=== PATIENT | male | born 1935 | race African-American/Black ===

== ENCOUNTER 2017-11-16 18:46 | Inpatient (IN) ==
[2017-11-16] MEDS ORDERED: ALBUTEROL NEB SOLN 5 MG/ML 20 ML/BOTTLE CONT NEB STA (20:34)
[2017-11-16] MEDS ORDERED: methylPREDNISolone SOD SUC 125 MG/2 ML VIAL IV STA (20:35)
[2017-11-16] MEDS ORDERED: ALBUTEROL/IPRATROPIUM 3 ML NEB RESP TX PRN (21:06)
[2017-11-16] MEDS ORDERED: DEXTROSE 50% 25 GM/50 ML VIAL IV PRN (21:06)
[2017-11-16] MEDS ORDERED: GLUCAGON 1 MG VIAL IM PRN (21:06)
[2017-11-16] MEDS ORDERED: ONDANSETRON 4 MG/2 ML VIAL IV PRN (21:06)
[2017-11-16] MEDS ORDERED: SODIUM CHLORIDE 0.9% 1,000 ML IV SCH (21:06)
[2017-11-16] MEDS ORDERED: ALBUTEROL 2.5 MG/3 ML NEB RESP TX ONE (21:29)
[2017-11-16 21:56] LABS: ABG Base Excess 3.8 MMOL/L (-2.5-2.5); ABG HCO3 27.7 MMOL/L (20-26); ABG Oxygen Saturation 93.4 % (95-100); ABG PO2 84.1 MM HG (80-95); ABG TCO2 34.6 MMOL/L (23-27); Allen Test Positive
[2017-11-16] MEDS ORDERED: methylPREDNISolone SOD SUC 125 MG/2 ML VIAL ONE (22:08)
[2017-11-16] MEDS ORDERED: PANTOPRAZOLE 40 MG VIAL IV ONE (22:08)
[2017-11-16 22:20] LABS: ABG PH 7.156 (7.35-7.45)
[2017-11-16] MEDS: PANTOPRAZOLE 40 MG VIAL IV SCH (22:35)
[2017-11-16 23:36] LABS: Apearance,Urine Slightly Hazy (Clear); Bacteria,Urine Occasional /HPF (Few); Bilirubin,Urine Negative (Negative); Blood, Urine Small mg/dL (Negative); Glucose,Urine (UA) Negative (Negative); Hyaline Casts,Urine 6 /LPF (0-3); Ketones,Urine Negative (Negative); Mucus,Urine Occasional /LPF (Occasional); Nitrite,Urine Negative (Negative); Protein,Urine Negative; RBC,Urine 3 /HPF (0-4); Squamous Epithelial Cell,Urine Occasional /HPF (0-10); Urine Color Yellow (Yellow); Urine Urobilinogen < 2.0 EU/DL (0.2-1.0); WBC,Urine 2 /HPF (0-6)
[2017-11-16 23:41] LABS: Barbiturates Screen,Urine Negative (Negative); Benzodiazepines Screen,Urine Negative (Negative); Cannabinoid Screen,Urine Negative (Negative); Opiate Screen,Urine Negative (Negative); Phencyclidine Screen,Urine Negative (Negative)
[2017-11-16] MEDS: methylPREDNISolone SOD SUC 40 MG/1 ML VIAL IV SCH ×2 (23:57→23:58)
[2017-11-17] MEDS: INSULIN REGULAR 100 UNIT/ML SUBCUT SCH ×4 (00:02→18:59)
[2017-11-17] MEDS: ALBUTEROL/IPRATROPIUM 3 ML NEB RESP TX SCH ×8 (00:05→22:53)
[2017-11-17 01:39] LABS: ABG Base Excess 4.3 MMOL/L (-2.5-2.5); ABG HCO3 27.9 MMOL/L (20-26); ABG Oxygen Saturation 79.7 % (95-100); Allen Test Positive; Pt O2 Delivery Device BIPAP
[2017-11-17 01:43] LABS: ABG PCO2 90.8 MM HG (35-48)
[2017-11-17] MEDS ORDERED: ALBUTEROL NEB SOLN 5 MG/ML 20 ML/BOTTLE CONT NEB STA (01:56)
[2017-11-17] MEDS ORDERED: ALBUTEROL 2.5 MG/3 ML NEB RESP TX ONE (02:08)
[2017-11-17 03:40] LABS: ABG HCO3 27.6 MMOL/L (20-26); ABG Oxygen Saturation 84.7 % (95-100); ABG PO2 57.9 MM HG (80-95); ABG TCO2 33.1 MMOL/L (23-27); Allen Test Positive; Pt O2 Delivery Device BIPAP
[2017-11-17 03:42] LABS: ABG PCO2 93.9 MM HG (35-48); ABG PH 7.197 (7.35-7.45)
[2017-11-17 05:36] LABS: ABG Base Excess 3.3 MMOL/L (-2.5-2.5); ABG HCO3 27.2 MMOL/L (20-26); ABG Oxygen Saturation 91.8 % (95-100); ABG PH 7.217 (7.35-7.45); ABG PO2 69.6 MM HG (80-95); ABG TCO2 31.4 MMOL/L (23-27)
[2017-11-17 05:37] LABS: Alanine Aminotransferase 19 U/L (16-61); Albumin 3.2 G/DL (3.4-5.0); Alkaline Phosphatase 67 U/L (45-117); Aspartate Amino Transferase 50 U/L (0-37); Bilirubin,Total < 0.39 MG/DL (0.2-1.0); Blood Urea Nitrogen 61 MG/DL (7-18); Calcium 7.8 MG/DL (8.5-10.1); Glucose 179 MG/DL (74-106); Magnesium 2.2 MG/DL (1.8-2.4); Osmolality,Calculated 297.5 MOS/KG (273-304); Potassium 5.3 MMOL/L (3.5-5.1); Sodium 139 MMOL/L (136-145)
[2017-11-17 05:39] LABS: ABG PCO2 85.6 MM HG (35-48)
[2017-11-17 05:41] LABS: Basophils % 0.2 % (0.0-0.8); Hematocrit 44.3 VOL% (42.0-52.0); Hemoglobin 13.6 GM/DL (14.0-18.0); Immature Granulocytes % 0.5 %; Immature Granulocytes Absolute 0.03 #; Lymphocytes # 1.1 10*3/uL (1.4-4.0); Lymphocytes % 17.4 % (21.2-54.2); Mean Corpuscular HGB Conc 30.7 GM/DL (32-36); Mean Corpuscular Hemoglobin 30 PG (27-34); Monocytes # 0.2 10*3/uL (0.11-0.8); Monocytes % 2.7 % (1.7-12.7); NRBC # 0.03 10*3/uL; Neutrophils # 4.8 10*3/uL (1.4-7.4); Neutrophils % 79.2 % (38.7-73.9); Platelet Count 137 T/CUMM (130-400); Red Blood Count 4.52 MC/CUMM (3.8-5.5); Red Cell Distribution Width 15.7 % (9.3-17.3)
[2017-11-17] MEDS ORDERED: methylPREDNISolone SOD SUC 40 MG/1 ML VIAL ONE (06:11)
[2017-11-17] MEDS: methylPREDNISolone SOD SUC 40 MG/1 ML VIAL IV SCH ×3 (06:14→21:10)
[2017-11-17] MEDS ORDERED: INSULIN REGULAR 100 UNIT/ML ONE (06:26)
[2017-11-17] MEDS ORDERED: INFLUENZA VIRUS VACCINE 0.5 ML SYRINGE IM ONE (07:04)
[2017-11-17] MEDS: SODIUM CHLORIDE 0.9% 1,000 ML IV SCH ×2 (18:58→22:40)
[2017-11-17] MEDS: PANTOPRAZOLE 40 MG VIAL IV SCH (21:10)
[2017-11-17] MEDS: ENOXAPARIN 30 MG/0.3 ML SYRINGE SUBCUT SCH (21:11)
[2017-11-18] MEDS: INSULIN REGULAR 100 UNIT/ML SUBCUT SCH ×5 (01:02→22:04)
[2017-11-18] MEDS: ALBUTEROL/IPRATROPIUM 3 ML NEB RESP TX SCH ×6 (02:23→23:43)
[2017-11-18 04:08] LABS: ABG Base Excess 6.8 MMOL/L (-2.5-2.5); ABG HCO3 33.4 MMOL/L (20-26); ABG Oxygen Saturation 87.9 % (95-100); ABG PCO2 56.5 MM HG (35-48); ABG PH 7.389 (7.35-7.45); ABG PO2 52.6 MM HG (80-95); ABG TCO2 35.1 MMOL/L (23-27)
[2017-11-18 04:43] LABS: Hematocrit 38.1 VOL% (42.0-52.0); Hemoglobin 12.1 GM/DL (14.0-18.0); Immature Granulocytes % 0.5 %; Immature Granulocytes Absolute 0.05 #; Lymphocytes # 1.3 10*3/uL (1.4-4.0); Lymphocytes % 13.2 % (21.2-54.2); Mean Corpuscular HGB Conc 31.8 GM/DL (32-36); Mean Corpuscular Hemoglobin 30 PG (27-34); Mean Corpuscular Volume 93.4 FL (87-102); Mean Platelet Volume 11.2 FL (9.6-12.0); Monocytes # 0.6 10*3/uL (0.11-0.8); Monocytes % 6.4 % (1.7-12.7); NRBC # 0.02 10*3/uL; Neutrophils # 7.9 10*3/uL (1.4-7.4); Neutrophils % 79.9 % (38.7-73.9); Platelet Count 137 T/CUMM (130-400); Red Blood Count 4.08 MC/CUMM (3.8-5.5); Red Cell Distribution Width 15.6 % (9.3-17.3); White Blood Count 9.9 T/CUMM (4-12)
[2017-11-18 05:16] LABS: Calcium 7.4 MG/DL (8.5-10.1)
[2017-11-18 05:17] LABS: Magnesium 2.5 MG/DL (1.8-2.4); Osmolality,Calculated 299.5 MOS/KG (273-304); Potassium 4.8 MMOL/L (3.5-5.1)
[2017-11-18] MEDS: SODIUM CHLORIDE 0.9% 1,000 ML IV SCH ×3 (05:26→17:48)
[2017-11-18] MEDS: methylPREDNISolone SOD SUC 40 MG/1 ML VIAL IV SCH ×3 (05:38→21:18)
[2017-11-18] MEDS ORDERED: LEVOFLOXACIN INJ 500 MG in PREMIX 1 EACH IV ONE (08:00)
[2017-11-18] MEDS: PANTOPRAZOLE 20 MG TABLET PO SCH (12:08)
[2017-11-18] MEDS: ENOXAPARIN 30 MG/0.3 ML SYRINGE SUBCUT SCH (21:18)
[2017-11-19] MEDS: SODIUM CHLORIDE 0.9% 1,000 ML IV SCH ×3 (02:09→16:25)
[2017-11-19] MEDS: methylPREDNISolone SOD SUC 40 MG/1 ML VIAL IV SCH ×3 (04:17→16:24)
[2017-11-19] MEDS: ALBUTEROL/IPRATROPIUM 3 ML NEB RESP TX SCH ×5 (04:24→20:15)
[2017-11-19] MEDS: hydrALAZINE 20 MG/1 ML VIAL IV PRN ×2 (05:18→21:14)
[2017-11-19] MEDS: INSULIN REGULAR 100 UNIT/ML SUBCUT SCH ×4 (09:04→21:13)
[2017-11-19] MEDS: PANTOPRAZOLE 20 MG TABLET PO SCH (09:05)
[2017-11-19] MEDS: LEVOFLOXACIN INJ 250 MG in PREMIX 1 EACH IV SCH (09:05)
[2017-11-19] MEDS: BRIMONIDINE 0.2% OPH SOLN 5 ML BOTTLE BOTH EYES SCH ×2 (16:23→21:12)
[2017-11-19] MEDS: ENOXAPARIN 30 MG/0.3 ML SYRINGE SUBCUT SCH (21:13)
[2017-11-20] MEDS: methylPREDNISolone SOD SUC 40 MG/1 ML VIAL IV SCH ×3 (00:02→20:47)
[2017-11-20] MEDS: ALBUTEROL/IPRATROPIUM 3 ML NEB RESP TX SCH ×6 (01:04→20:20)
[2017-11-20 06:28] LABS: Immature Granulocytes % 0.7 %; Immature Granulocytes Absolute 0.05 #; Lymphocytes # 0.7 10*3/uL (1.4-4.0); Lymphocytes % 9.4 % (21.2-54.2); Mean Corpuscular Hemoglobin 29 PG (27-34); Mean Corpuscular Volume 94.8 FL (87-102); Mean Platelet Volume 11.3 FL (9.6-12.0); Monocytes # 0.4 10*3/uL (0.11-0.8); Monocytes % 5.9 % (1.7-12.7); Neutrophils # 6.1 10*3/uL (1.4-7.4); Platelet Count 142 T/CUMM (130-400); Red Blood Count 4.43 MC/CUMM (3.8-5.5); White Blood Count 7.2 T/CUMM (4-12)
[2017-11-20 07:02] LABS: Calcium 8.4 MG/DL (8.5-10.1); Magnesium 2.4 MG/DL (1.8-2.4); Osmolality,Calculated 293.3 MOS/KG (273-304)
[2017-11-20] MEDS: PANTOPRAZOLE 20 MG TABLET PO SCH (09:10)
[2017-11-20] MEDS: amLODIPine 5 MG TABLET PO SCH (09:10)
[2017-11-20] MEDS: PRAMIPEXOLE 0.25 MG TABLET PO SCH ×3 (09:10→20:48)
[2017-11-20] MEDS: ALFUZOSIN 10 MG TABLET PO SCH (09:10)
[2017-11-20] MEDS: LEVOFLOXACIN INJ 250 MG in PREMIX 1 EACH IV SCH (09:11)
[2017-11-20] MEDS: BRIMONIDINE 0.2% OPH SOLN 5 ML BOTTLE BOTH EYES SCH ×3 (09:11→20:46)
[2017-11-20] MEDS: INSULIN REGULAR 100 UNIT/ML SUBCUT SCH ×5 (09:11→20:48)
[2017-11-20] MEDS: SODIUM CHLORIDE 0.9% 1,000 ML IV SCH (16:12)
[2017-11-20] MEDS: ENOXAPARIN 30 MG/0.3 ML SYRINGE SUBCUT SCH (20:46)
[2017-11-20] MEDS: TRAVOPROST 0.004% OPH SOLN 2.5 ML BOTTLE BOTH EYES SCH (20:49)
[2017-11-21] MEDS: ALBUTEROL/IPRATROPIUM 3 ML NEB RESP TX SCH ×7 (00:08→23:12)
[2017-11-21] MEDS: hydrALAZINE 20 MG/1 ML VIAL IV PRN (05:08)
[2017-11-21] MEDS: PRAMIPEXOLE 0.25 MG TABLET PO SCH ×3 (10:15→20:57)
[2017-11-21] MEDS: BRIMONIDINE 0.2% OPH SOLN 5 ML BOTTLE BOTH EYES SCH ×3 (10:16→20:58)
[2017-11-21] MEDS: PANTOPRAZOLE 20 MG TABLET PO SCH (10:16)
[2017-11-21] MEDS: CLOPIDOGREL 75 MG TABLET PO SCH (10:16)
[2017-11-21] MEDS: ALFUZOSIN 10 MG TABLET PO SCH (10:16)
[2017-11-21] MEDS: LEVOFLOXACIN INJ 500 MG in PREMIX 1 EACH IV SCH (10:16)
[2017-11-21] MEDS: amLODIPine 5 MG TABLET PO SCH (10:16)
[2017-11-21] MEDS: TRAVOPROST 0.004% OPH SOLN 2.5 ML BOTTLE BOTH EYES SCH ×2 (10:17→21:06)
[2017-11-21] MEDS: INSULIN REGULAR 100 UNIT/ML SUBCUT SCH ×4 (11:17→20:57)
[2017-11-21] MEDS: methylPREDNISolone SOD SUC 40 MG/1 ML VIAL IV SCH (11:18)
[2017-11-21] MEDS: LEVOFLOXACIN INJ 250 MG in PREMIX 1 EACH IV SCH (11:18)
[2017-11-21] MEDS: SODIUM CHLORIDE 0.9% 1,000 ML IV SCH ×2 (17:01→21:35)
[2017-11-21] MEDS: ENOXAPARIN 30 MG/0.3 ML SYRINGE SUBCUT SCH (20:57)
[2017-11-22] MEDS: ALBUTEROL/IPRATROPIUM 3 ML NEB RESP TX SCH ×5 (02:37→20:05)
[2017-11-22 04:08] LABS: Allen Test Positive
[2017-11-22 04:09] LABS: ABG Base Excess 2.2 MMOL/L (-2.5-2.5); ABG HCO3 28.2 MMOL/L (20-26); ABG Oxygen Saturation 97.9 % (95-100); ABG PCO2 49.5 MM HG (35-48); ABG PH 7.374 (7.35-7.45); ABG TCO2 29.8 MMOL/L (23-27)
[2017-11-22 06:17] LABS: Albumin 2.4 G/DL (3.4-5.0); Bilirubin,Total 0.6 MG/DL (0.2-1.0); Calcium 7.9 MG/DL (8.5-10.1); Osmolality,Calculated 284.3 MOS/KG (273-304); Potassium 4.4 MMOL/L (3.5-5.1); Total Protein 5.8 G/DL (6.4-8.3)
[2017-11-22 08:09] LABS: Apearance,Urine CLEAR (Clear); Bacteria,Urine Occasional /HPF (Few); Bilirubin,Urine Negative (Negative); Blood, Urine Small mg/dL (Negative); Glucose,Urine (UA) >=500 mg/dL (Negative); Hyaline Casts,Urine 4 /LPF (0-3); Ketones,Urine Negative (Negative); Mucus,Urine Occasional /LPF (Occasional); Nitrite,Urine Negative (Negative); Protein,Urine Negative; RBC,Urine 6 /HPF (0-4); Squamous Epithelial Cell,Urine Occasional /HPF (0-10); Urine Color Yellow (Yellow); Urine Urobilinogen < 2.0 EU/DL (0.2-1.0); WBC,Urine 1 /HPF (0-6)
[2017-11-22] MEDS: INSULIN REGULAR 100 UNIT/ML SUBCUT SCH ×4 (08:45→20:58)
[2017-11-22] MEDS: LEVOFLOXACIN INJ 500 MG in PREMIX 1 EACH IV SCH (10:03)
[2017-11-22] MEDS: ALFUZOSIN 10 MG TABLET PO SCH (10:05)
[2017-11-22] MEDS: amLODIPine 5 MG TABLET PO SCH (10:05)
[2017-11-22] MEDS: CLOPIDOGREL 75 MG TABLET PO SCH (10:05)
[2017-11-22] MEDS: PRAMIPEXOLE 0.25 MG TABLET PO SCH ×3 (10:05→20:58)
[2017-11-22] MEDS: PANTOPRAZOLE 20 MG TABLET PO SCH (10:06)
[2017-11-22] MEDS: TRAVOPROST 0.004% OPH SOLN 2.5 ML BOTTLE BOTH EYES SCH ×2 (10:18→20:58)
[2017-11-22] MEDS: BRIMONIDINE 0.2% OPH SOLN 5 ML BOTTLE BOTH EYES SCH ×3 (12:23→20:58)
[2017-11-22] MEDS: ENOXAPARIN 30 MG/0.3 ML SYRINGE SUBCUT SCH (20:58)
[2017-11-23] MEDS: ALBUTEROL/IPRATROPIUM 3 ML NEB RESP TX SCH ×3 (01:02→08:15)
[2017-11-23] MEDS: ALFUZOSIN 10 MG TABLET PO SCH (09:19)
[2017-11-23] MEDS: CLOPIDOGREL 75 MG TABLET PO SCH (09:19)
[2017-11-23] MEDS: amLODIPine 5 MG TABLET PO SCH (09:19)
[2017-11-23] MEDS: INSULIN REGULAR 100 UNIT/ML SUBCUT SCH (09:19)
[2017-11-23] MEDS: PRAMIPEXOLE 0.25 MG TABLET PO SCH (09:19)
[2017-11-23] MEDS: BRIMONIDINE 0.2% OPH SOLN 5 ML BOTTLE BOTH EYES SCH (09:19)
[2017-11-23] MEDS: TRAVOPROST 0.004% OPH SOLN 2.5 ML BOTTLE BOTH EYES SCH (09:20)
[2017-11-23] MEDS: LEVOFLOXACIN INJ 500 MG in PREMIX 1 EACH IV SCH (09:20)
[2017-11-23] MEDS: PANTOPRAZOLE 20 MG TABLET PO SCH (09:20)
[2017-11-23 10:28] VITALS: BP 167/78
== END 2017-11-23 13:38 | disposition home or self-care (01) | DRG 189 ==
LOC: EDBD → EDUNIT# → N.ED 18:46 → N.EDINP 20:24 → SUATTDRO 20:24 → N.EDINP 11-17 06:32 → N.CC 11-17 06:56 → N.5E 11-18 17:03
PROVIDERS: ADMIT Hospitalist